=== PATIENT | male | born 1985 | race Asian ===

== ENCOUNTER 2017-06-30 16:48 | Emergency (ER) | payer OTHER ==
[~2017-06-30] VITALS: Ht 170.2 cm; Wt 51.8 kg
[2017-06-30] MEDS ORDERED: antibiotic PO (17:21)
[2017-06-30] MEDS ORDERED: METHOCARBAMOL 500 MG TABLET PO ONE (17:45)
[2017-06-30] MEDS ORDERED: KETOROLAC TROMETHAMINE 60 MG/2 ML VIAL IM ONE (17:45)
[2017-06-30 18:35] VITALS: BP 114/76
== END 2017-06-30 19:03 | disposition home or self-care (01) ==
LOC: EMS 16:49
DX: S39.012A Strain of muscle, fascia and tendon of lower back, initial encounter (principal); S76.012A Strain of muscle, fascia and tendon of left hip, initial encounter; Z87.891 Personal history of nicotine dependence; V23.4XXA Motorcycle driver injured in collision with car, pick-up truck or van in traffic accident, initial encounter; Y93.89 Activity, other specified; Y92.410 Unspecified street and highway as the place of occurrence of the external cause; Y99.8 Other external cause status
CPT/HCPCS: 96372; 99283; J1885